=== PATIENT | female | born 1980 | race Caucasian/White ===

== ENCOUNTER 2017-02-26 11:12 | Emergency (ER) | payer OTHER ==
[2017-02-26 12:29] VITALS: BP 107/67
--- NOTE | 2017-02-26 14:03 | UC ---
[facility] HPI - HPI Summary HPI Summary: RIGHT LOWER JAW PAIN WORSENING OVER LAST TWO DAYS RADIATING INTO RIGHT EAR AND NECK. LAST WEEK HAD UPPER RESPIRATORY INFECTION. NO FEVER. - History of Current Complaint Chief Complaint: UCDentalProblem Stated Complaint: DENTAL COMPLAINT Time Seen by Provider: 02/26/17 13:10 Hx Obtained From: Patient, Family/Infrastructure Architect Hx Last Menstrual Period: 12/30/14 Onset/Duration: Gradual Onset, Lasting Days, Still Present Severity: Moderate Aggravating Factor(s): Chewing Related History: Previous Dental Care on Same Tooth, Discharge, Swelling - Allergies/Home Medications Allergies/Adverse Reactions: Allergies Allergy/AdvReac Type Severity Reaction Status Date / Time Latex Allergy Severe Anaphylatic Verified 07/25/15 20:22 Shock Penicillins Allergy Severe Anaphylatic Verified 07/25/15 20:22 Shock Amoxicillin Allergy Unknown Verified 07/25/15 20:22 Reaction Details Gluten Meal Allergy See Comment Verified 07/25/15 20:22 PMH/Surg Hx/FS Hx/Imm Hx Previously Healthy: Yes - Surgical History Surgical History: Yes Surgery Procedure, Year, and Place: RT ANKLE TENDON REPAIR 02/03. - Family History Known Family History: Positive: Other - celiac - Social History Occupation: Employed Full-time Lives: With Family Alcohol Use: None Substance Use Type: None Smoking Status (MU): Light Every Day Tobacco Smoker Type: Pipe Amount Used/How Often: a little bit at night - Immunization History Most Recent Tetanus Shot: unknown, pt declines vaccine, pt with history of allergy Review of Systems Constitutional: Chills Skin: Rash ENT: Dental Pain, Ear Ache Respiratory: Cough Cardiovascular: Negative Gastrointestinal: Negative Genitourinary: Negative Motor: Negative Neurovascular: Negative Musculoskeletal: Negative Neurological: Negative Psychological: Negative Is Patient Immunocompromised?: No All Other Systems Reviewed And Are Negative: Yes Physical Exam Triage Information Reviewed: Yes Appearance: Well-Nourished, Ill-Appearing, Pain Distress Vital Signs: Initial Vital Signs Temp 97.7 F 02/26/17 12:26 Pulse 62 02/26/17 12:26 Resp 18 02/26/17 12:26 BP 107/67 02/26/17 12:26 Pulse Ox 100 02/26/17 12:26 Vital Signs Reviewed: Yes Eye Exam: Normal ENT: Positive: Pharynx normal, Nasal congestion, TMs normal Dental: Positive: Percussion Tenderness @ - 32,31,30 Neck exam: Normal Neck: Positive: Supple, Nontender, No Lymphadenopathy Respiratory Exam: Normal Respiratory: Positive: Chest non-tender, Lungs clear, Normal breath sounds, No respiratory distress, No accessory muscle use Cardiovascular Exam: Normal Cardiovascular: Positive: RRR, No Murmur, Pulses Normal, Brisk Capillary Refill Abdominal Exam: Normal Musculoskeletal Exam: Normal Musculoskeletal: Positive: Strength Intact, ROM Intact, No Edema Neurological Exam: Normal Psychological Exam: Normal Skin Exam: Normal Dental Complaint Course/Dx - Differential Dx/Diagnosis Differential Diagnosis/Dx: Dental Abscess, Dental Caries, Fractured Tooth Provider Diagnoses: DENTAL ABSCESS (30,31,32), UPPER RESPIRATORY INFECTION Discharge - Discharge Plan Condition: Stable Disposition: HOME Prescriptions: Clindamycin Cap(NF) [Clindamycin Cap 300 mg Cap(NF)] 300 mg PO TID #30 cap Patient Education Materials: Dental Abscess (ED), Upper Respiratory Infection ( ED), Toothache (ED) Referrals: Thania Dc ANDRO[employer] DEVELOPER [Primary Care Provider] - Images Dental: 1 - ,,30
== END 2017-02-26 13:45 | disposition home or self-care (01) ==
LOC: UCEAST 11:12
DX: K04.7 Periapical abscess without sinus (principal); J06.9 Acute upper respiratory infection, unspecified; Z72.0 Tobacco use
CPT/HCPCS: 99212; G0463